=== PATIENT | female | born 1960 | race Caucasian/White ===

== ENCOUNTER → 2021-04-16 10:16 | Outpatient (CLI) | payer OTHER, BC, SELFPAY ==
--- NOTE | ~2021-04-16 | XR_ITS ---
XR lumbar spine 2-3V 04/16/2021 11:29 Indication: Low back pain Procedure: 3 views lumbar spine Comparison: No prior studies for comparison. Findings: There is levoscoliosis centered at L3-4. There is mild disc narrowing at L5-S1. There are f acet degenerative changes at L5-S1. Vertebral body heights are maintained. No fracture, subluxation o r spondylolisthesis. There is atherosclerosis of the aorta. There is calcification in the pelvis, pos sibly calcified uterine fibroid. Impression: 1: Mild lower lumbar spondylosis with levoscoliosis. Reviewed, dictated and finalized at location A. FILLER Impression: 1: Mild lower lumbar spondylosis with levoscoliosis.
--- NOTE | ~2021-04-16 | DEXA_ITS ---
Bone Density Report Name: SARINA PITTMAN Age: 61 Sex: Female Ethnicity: White Date of : 1960 Indication: osteopenia; height loss; postmenopausal Referring Provider: YAHAIRA RAMIREZ Study: Bone densitometry was performed. Exam Date: April 16, 2021 Accession number: [id number] Bone Density: Region BMD T-score Z-score Classification AP Spine (L1-L4) 0.946 -0.9 0.4 Normal Femoral Neck (Left) 0.563 -2.6 -1.3 Osteoporosis Total Hip (Left) 0.709 -1.9 -1.0 Osteopenia Femoral Neck (Right) 0.524 -2.9 -1.7 Osteoporosis Total Hip (Right) 0.692 -2.0 -1.1 Osteopenia Total Hip Mean 0.701 -2.0 -1.1 Osteopenia World Health Organization criteria for BMD impression classify patients as: Normal (T-score at or above -1.0), Osteopenia (T-score between -1.0 and -2.5), or Osteoporosis (T-score at or below -2.5). 10-year Fracture Risk: FRAX not reported because: Some T-score for Spine Total or Hip Total or Femoral Neck at or below -2.5 Previous Exams: Region Exam Age BMD T-score BMD Change BMD Change Date g/cm2 vs Baseline vs Previous AP Spine(L1-L4) 04/16/2021 61 0.946 -0.9 -0.010 -0.010 07/28/2017 57 0.956 -0.8 Total Hip(Left) 04/16/2021 61 0.709 -1.9 -0.032* -0.032* 07/28/2017 57 0.741 -1.6 Total Hip(Right) 04/16/2021 61 0.692 -2.0 -0.015 -0.015 07/28/2017 57 0.707 -1.9 *Denotes significance at 95% confidence level, LSC for AP Spine = 0.022 g/cm2, LSC for Total Hip = 0.027 g/cm2 Clinical Information Provided by Patient: Smokes Has used the following medications: Vitamin D, Calcium Patient maximum height was 62.5 Menopause Age: 52 No regular weight bearing exercise Drinks caffeinated beverages Onset of menses at age 14 Number of children 0 Impression: The patient has osteoporosis, based on the Right Femoral Neck T-score. The patient has risk factors, including: smoking. The BMD for the Total Hip(Left) decreased, changing by -0.032 since the last DXA exam. Discussion: INCREASED RISK OF FRACTURE. BONE DENSITY IS UNDESIRABLY LOW AT ONE OR MORE SKELETAL SITES, CONSISTENT WITH POSTMENOPAUSAL OSTEOPOROSIS. This patient's lowest T-score meets the World Health Organization's (WHO) criteria for osteoporosis at one or more sites (T-score -2.5 or below). In untreated patients, the risk of osteoporotic fracture increases approximately two-fold for each 1.0 SD decrease in T-score. Low bone d
--- NOTE | ~2021-04-16 | XR_ITS ---
EXAMINATION: XR chest 2V DATE: 04/16/2021 11:29 INDICATION: Chronic cough. TECHNIQUE: Frontal and lateral views of the chest were obtained. COMPARISON: Chest 2 views 07/19/2017 FINDINGS: There is a new 2 cm nodule in right midlung zone. No pleural effusion or pneumothorax. The heart size is normal. IMPRESSION: 1. New 2 cm nodule in right midlung zone suspicious for primary bronchogenic carcinoma. Noncontrast c hest CT is recommended. Reviewed, dictated and finalized at location B. E RACING ANALYST IMPRESSION: 1. New 2 cm nodule in right midlung zone suspicious for primary bronchogenic ca rcinoma. Noncontrast chest CT is recommended.
--- NOTE | ~2021-04-16 | XR_ITS ---
XR thoracic spine 3V 04/16/2021 11:29 Indication: Chronic cough. Mid back pain. Procedure: 3 views thoracic spine Comparison: No prior studies for comparison. Findings: There is mild reverse S-shaped scoliosis of the thoracic spine. No acute fracture, subluxat ion or dislocation. No paraspinal soft tissue abnormality. Visualized lung parenchyma is unremarkable . There are mild degenerative disc changes at a few lower thoracic spine levels. Impression: 1: Mild thoracic spondylosis with scoliosis. Reviewed, dictated and finalized at location A. OW FRAMER Impression: 1: Mild thoracic spondylosis with scoliosis.
== END ==
PROVIDERS: PCP Family Medicine Adolescent Medicine; Visit Provider Family Medicine Adolescent Medicine
DX: Z78.0 Asymptomatic menopausal state (principal); R05.9 Cough, unspecified; M54.50 Low back pain, unspecified; M47.814 Spondylosis without myelopathy or radiculopathy, thoracic region; M47.816 Spondylosis without myelopathy or radiculopathy, lumbar region; R91.8 Other nonspecific abnormal finding of lung field; M81.0 Age-related osteoporosis without current pathological fracture; M85.89 Other specified disorders of bone density and structure, multiple sites; M41.86 Other forms of scoliosis, lumbar region; M41.84 Other forms of scoliosis, thoracic region
CPT/HCPCS: 71046; 72072; 72100; 77080

== ENCOUNTER 2021-04-26 09:18 | Observation (INO) | payer OTHER, BC, SELFPAY ==
[2021-04-26] VITALS (32 sets, daily range): BP systolic 109–178; BP diastolic 60–90; PULSE 70–108; RESP 17–30; TEMP 36.7; O2SAT 88–99
--- NOTE | ~2021-04-26 | XR_ITS ---
EXAMINATION: XR chest 2V DATE: 04/26/2021 09:45 INDICATION: Soreness breath, chest tightness and chronic cough TECHNIQUE: PA and lateral views of the chest were obtained. COMPARISON: Chest radiograph dated 04/12/2021 FINDINGS: Again seen is an approximately 2 cm nodule in the right midlung zone which appears less conspicuous t braxton on the prior study. Likely nipple shadows project over the lateral right lower lung zone. No othe r airspace opacities, pulmonary edema, pleural effusion or pneumothorax. The cardiomediastinal silhou ette is normal. Mild thoracic levocurvature. IMPRESSION: 1. Unchanged 2 cm nodule in the right midlung zone which remains concerning for primary bronchogenic carcinoma. Recommend chest CT for further evaluation which be performed either with or without contra st. 2. No other acute cardiopulmonary disease. Reviewed, dictated and finalized at location A. IL STORE ASSISTANT IMPRESSION: 1. Unchanged 2 cm nodule in the right midlung zone which remains concerning for primary bronchogenic carcinoma. Recommend chest CT for further evaluation whic h be performed either with or without contrast. 2. No other acute cardiopulmonary disease.
--- NOTE | ~2021-04-26 | CT_ITS ---
EXAMINATION: CTA chest PE abdomen pel DATE: 04/26/2021 12:53 INDICATION: Tachycardia TECHNIQUE: Computed tomography (CT) pulmonary angiogram of the chest was performed with 100 mL Omnipa que-350 intravenous contrast. Additional 3D reconstructions utilizing coronal maximum intensity proje ction (MIP) were performed. CT of the abdomen and pelvis was performed with intravenous contrast util izing the same contrast bolus following a short delay. Automated exposure control and iterative recon struction technique were employed. The dose-length product was 336.96 mGy-cm. COMPARISON: 04/26/2021 FINDINGS: Chest: Excellent contrast opacification of the pulmonary arteries. There is mild streak artifact from dense contrast in the superior vena cava and right atrium. Mild scattered respiratory motion artifact which only mildly decreases sensitivity in the smaller subsegmental pulmonary arteries at the lung bases. No pulmonary embolism. Mild emphysema. Mild peripheral predominant smooth septal line thickening at t he lower lung zones, right greater than left consistent with mild pulmonary edema. Tiny right pleural effusion. 2.5 x 1.7 x 1.5 cm spiculated right upper lobe nodule suspicious for malignancy. 7 mm tria ngular intrafissural lymph node along the right minor fissure. Heart size is normal. No pericardial e ffusion. Thoracic aorta is normal in caliber with no dissection. No pathologically enlarged thoracic lymphadenopathy. Mild thoracic spondylosis with chronic mild anterior wedging at T12. Abdomen/pelvis: Liver, gallbladder, spleen, pancreas and bilateral adrenal glands are normal. Subcentimeter low-atten uation lesions at the upper poles of both kidneys most likely renal cysts but too small to definitive ly characterize. Several calcified degenerated uterine fibroids. Bladder is normal. Bowels including the appendix are normal. No free intraperitoneal gas or fluid. No pathologically enlarged lymphadenop athy Mild osteoarthritis at the bilateral hips with subarticular cystic change at the anterosuperior acetabulum. IMPRESSION: 1. No pulmonary embolism. 2. Mild emphysema with 2.5 cm between the right upper lobe nodule concerning for primary bronchogenic carcinoma. Recommend CT-guided percutaneous biopsy for further evaluation. 3. Mild pulmonary edema cannot bases, right greater than left with tiny right pleural effusion. 4. Fibroid uterus. Reviewed, dictated and finalized at location A. OAT PILOT IMPRESSION: 1. No pulmonary embolism. 2. Mild emphysema with 2.5 cm between the right upper lobe nodule concerning fo r primary bronchogenic carcinoma. Recommend CT-guided percutaneous biopsy for f urther evaluation. 3. Mild pulmonary edema cannot bases, right greater than left with tiny right p leural effusion. 4. Fibroid uterus.
--- NOTE | 2021-04-26 09:21 | ECG_ITS ---
Measurements Intervals [place] Rate: 107 P: 66 ND: 145 QRS: 42 QRSD: 88 T: 41 QT: 331 QTc: 442 Interpretive Statements SINUS TACHYCARDIA INCOMPLETE RIGHT BUNDLE BRANCH BLOCK BORDERLINE ST-T WAVE ABNORMALITY- ANTEROLAT/INF LEADS BASELINE ARTIFACT- I, II, III, AVR, AVL, AVF ABNORMAL ECG Electronically Signed On 04-26-2021 12:28:51 TILE GRADER by Zane Alfredo D.O.
--- NOTE | 2021-04-26 10:25 | ED.GENADULT ---
HPI - General Adult General Chief complaint: Shortness of Breath/Dyspnea Stated complaint: Shortness of breath Time Seen by Provider: 04/26/21 10:03 Source: patient Mode of arrival: ambulatory Limitations: no limitations History of Present Illness HPI narrative: Patient presents to the ER with complaints of shortness of breath since yesterday. She states she has had a productive cough of white sputum for the last 2 weeks. She saw her primary care provider about this. She had a chest x-ray performed and some lab work. She states her white blood cell count was elevated at 19,000, but she had evidence of a UTI and elevation was attributed to that. She was given abx which she completed yesterday. She has experienced chills yesterday without fever. She has also experienced chest tightness without chest pain per se. She has chronic back pain which she attributes to DDD, however her pain has been getting worse. She has chronic diarrhea that she attributes to microcytic colitis. No nausea or vomiting. She has received both doses of her Pfizer COVID vaccine and has also received her flu shot this year. No recent sick contacts and no personal hx of COVID infection. She smokes 1 ppd but states she has not been able to smoke yesterday or today due to her respiratory symptoms. She states she recently had a pulmonary nodule identified on CXR. No personal hx of VTE however her mother had a DVT. Not on exogenous estrogen. No recent surgeries. Related Data Allergies Allergy/AdvReac Type Severity Reaction Status Date / Time ibuprofen Allergy Unknown Unknown Verified 04/26/21 11:43 sulfanilamide Allergy Unknown Unknown Verified 04/26/21 11:43 Sulfa (Sulfonamide AdvReac Unknown NAUSEA Verified 04/26/21 11:43 Antibiotics) Review of Systems Review of Systems: CONSTITUTIONAL: Reports chills. Denies fever or sweats. EYES: Denies visual changes, redness, or discharge. ENT: Denies rhinorrhea, congestion, sore throat, or otalgia. CARDIOVASCULAR: Reports chest tightness. Denies chest pain, palpitations, or edema. RESPIRATORY: Reports productive cough of white sputum with associated SOB. GASTROINTESTINAL: Reports chronic diarrhea, unchanged. Denies abdominal pain, nausea, vomiting. GENITOURINARY: Denies dysuria or hematuria. SKIN: Denies rash or itching. MUSCULOSKELETAL: Reports chronic back pain, worsening. Denies joint pain, or myalgia. NEUROLOGIC: Denies headache, numbness, dizziness, or weakness. PSYCHIATRIC: Denies anxiety or depression. [facility] Past Medical History Medical History Degenerative disc disease GERD (gastroesophageal reflux disease) Hypertension Lung nodule Tobacco use Surgical History Surgical History No pertinent past surgical history Family History Family History Mother Hypertension Family history of elevated blood lipids Acute myocardial infarction DVT (deep venous thrombosis) Father Family history of rheumatoid arthritis Family history of malignant melanoma Patient's father is Social History Social History Smoking packs per day: 1 Smoking cigarettes per day: 20.0 Smoking status: Current every day smoker Alcohol intake: current Substance use: never Living arrangements: with family 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 HEAD: Normocephalic, atraumatic. EYES: PERRLA and EOMI. ENT: Nares clear, no rhinorrhea or epistaxis. Mucous membranes moist. Oropharynx without tonsillar hypertrophy exudate or other lesions. Caleb
[2021-04-26 10:31] LABS: Basophils Absolute Auto 0.1 K/mm3 (0.0-0.1); Basophils Percent Auto 0.3 % (0.2-1.2); Eosinophils Absolute Auto 0.4 K/mm3 (0-0.3); Eosinophils Percent Auto 1.8 % (0-4.4); Hemoglobin 13.5 g/dL (12.0-15.0); Immature Granulocyte Absolute 0.22 K/mm3 (0.00-0.031); Lymphocytes Absolute Auto 1.87 K/mm3 (0.9-3.2); Lymphocytes Percent Auto 8.7 % (18.3-44.2); Mean Corpuscular HGB Conc 33.8 g/dl (32-36); Mean Corpuscular Hemoglobin 29.3 pg (26-34); Mean Platelet Volume 9.4 fl (7.4-10.4); Monocytes Absolute Auto 1.6 K/mm3 (0.1-0.6); Monocytes Percent Auto 7.2 % (2.6-8.5); Neutrophils Absolute Auto 17.4 K/mm3 (1.3-6.7); Platelet Count Result 585 k/mm3 (150-375); Red Cell Distribution Width 15.8 % (11.5-14.5); White Blood Count 21.5 K/mm3 (4.5-10.0)
[2021-04-26] MEDS: IPRATROPIUM BR 0.02% INH SOLN 0.5 MG/2.5 ML VIAL INHALATION (10:47)
[2021-04-26] MEDS: ALBUTEROL SULFATE NEB 2.5 MG/3 ML INH INHALATION (10:47)
[2021-04-26 11:03] LABS: Add Urine Microscopic? YES; Appearance Urine Clear (Clear); Bilirubin Urine Negative (Negative); Blood Urine 2+ (Negative); Color Urine Straw (Yellow); Glucose Urine UA Negative (Negative); Ketones Urine Negative (Negative); Leukocyte Esterase Ur Negative LEU/UL (Negative); Mucus Urine Rare /lpf; Nitrate Urine Negative (Negative); Protein Urine 1+ mg/dL (Negative); RBC Urine 0-2 /hpf (0-2); Specific Grav Ur 1.006 (1.001-1.035); Urobilinogen Urine Negative mg/dL (<2.0); WBC Urine 0-3 /hpf
[2021-04-26 11:12] LABS: Lactic Acid Reflex 1.3 mmol/L (0.7-2.1)
--- NOTE | 2021-04-26 11:14 | PC.NURSE ---
SPoke with Cherelle in the lab, she is unreceiving labs , both times labs sent they were hemolyzed. Documentation Supervisor called, she will come draw the patient.
[2021-04-26 11:21] LABS: NT Pro B Type Natriuretic Pept 1090 pg/mL (5-100)
[2021-04-26] MEDS: SODIUM CHLORIDE 0.9% IV 1,000 ML 999 ML IV CONT (11:43)
[2021-04-26] MEDS: methylPREDNISolone SOD SUCC 125 MG VIAL IV PUSH (11:43)
[2021-04-26 11:51] LABS: INR 0.9; Prothrombin Time 11.9 Seconds (11.1-14.7)
[2021-04-26 11:52] LABS: Partial Thromboplastin Time 35.3 SECONDS (22.3-36.8)
[2021-04-26 12:04] LABS: Alanine Aminotransferase 16 U/L (4-35); Albumin Level 4.7 g/dL (3.5-5.1); Alkaline Phosphatase 124 U/L (38-126); Anion Gap 11 mmol/L (8-16); Aspartate Amino Transferase 29 U/L (14-36); Bilirubin,Total 0.5 mg/dL (0.2-1.3); Blood Urea Nitrogen 16 mg/dL (7-17); Carbon Dioxide 26 mmol/L (22-30); Chloride 90 mmol/L (98-107); Estimated Glomerular Filt Rate 51; Glucose 105 mg/dL (65-110); Lipase 77 U/L (23-300); Potassium 3.4 mmol/L (3.4-5.0); Sodium 127 mmol/L (137-145)
[2021-04-26 12:17] LABS: Troponin I 0.209 ng/mL (0.000-0.034)
--- NOTE | 2021-04-26 12:17 | ECG_ITS ---
Measurements Intervals [place] Rate: 86 P: 7 DC: 111 QRS: 43 QRSD: 85 T: 26 QT: 376 QTc: 451 Interpretive Statements SINUS RHYTHM WITH SHORT DC INTERVAL INCOMPLETE RIGHT BUNDLE BRANCH BLOCK BORDERLINE T WAVE ABNORMALITY- ANT/INF LEADS BASELINE ARTIFACT- I, II, AVR BORDERLINE ECG Electronically Signed On 04-26-2021 20:16:08 FRENCH POLISHER by Zane Alfredo D.O.
[2021-04-26 12:18] LABS: CRP 7.8 mg/dL (<1.0); Creatine Kinase 248 U/L (30-135); Lactate Dehydrogenase 472 U/L (313-618)
--- NOTE | 2021-04-26 12:34 | PC.NURSE ---
CALLED GENARO SPOUSE OF PT AT [phone] TO GIVE UPDATE ON PT CONDITION. HE WILL BRING IN HER PHONE SO SHE CAN GIVE FURTHER UPDATES TO HIM.
[2021-04-26 14:57] LABS: Troponin I 0.173 ng/mL (0.000-0.034)
[2021-04-26 18:29] LABS: Troponin I 0.169 ng/mL (0.000-0.034)
--- NOTE | 2021-04-26 19:48 | PM.IMHP ---
H&P: HPI History of Present Illness Date/Time: 04/26/21 19:48 this is a 61-year-old female patient continues to smoke daily. The patient came to the emergency room for shortness of breast since yesterday. The patient recently had a chest x-ray on 04/16/2020 that was read as due to severe nitro and right midlung zone suspicious for primary bronchogenic carcinoma. Noncontrast chest CT is recommended. The patient stated that she was waiting for her insurance to approve her CT scan. However the patient came to the emergency room today because she is more short of breath than normal. Patient is currently on room air. The patient appears to be very anxious chest x-ray today was read as the following.1. Unchanged 2 cm nodule in the right midlung zone which remains concerning for primary bronchogenic carcinoma. Recommend chest CT for further evaluation which be performed either with or without contrast. 2. No other acute cardiopulmonary disease. Chest abdomen pelvis CT read as 1. No pulmonary embolism. 2. Mild emphysema with 2.5 cm between the right upper lobe nodule concerning for primary bronchogenic carcinoma. Recommend CT-guided percutaneous biopsy for further evaluation. 3. Mild pulmonary edema cannot bases, right greater than left with tiny right pleural effusion. 4. Fibroid uterus. Her white count is 21.5. However the patient has chronic leukocytosis. The patient was seen by oncologist and had a workup for this already and a source was not found. Troponin 0.209, 0.173, and 0.169 respectively. The patient was requesting to go home. However reviewed all of her information with her and she decided that she would stay in the hospital overnight. Total creatinine kinase 248. BNP 1090. COVID pending. The patient was admitted to observation status on the date of service of 04/26/2021 Chief Complaint: Shortness of breath Review of Systems Review of Systems: All systems reviewed & are unremarkable except as noted in HPI and below Constitutional: Constitutional: Reports as per HPI and Reports no additional constitutional complaints Eyes: Eyes: Reports as per HPI and Reports no additional eye complaints ENT: Reports system reviewed and no additional complaints, except as documented and Reports Normal hearing present Cardiovascular: Cardiovascular: Reports no additional cardiovascular complaints Respiratory: Respiratory: Reports no additional respiratory complaints and Reports no additional respiratory complaints Gastrointestinal: Gastrointestinal: Reports as per HPI and Reports no additional gastrointestinal complaints Musculoskeletal: Musculoskeletal: Reports no additional musculoskeletal complaints Integumentary/Breasts: Skin/Breast: Reports system reviewed and no additional complaints, except as docu and Reports as per HPI Neurologic: Reports system reviewed and no additional complaints, except as documented, Reports as per HPI and Reports Normal hearing present Psychiatric: Psychiatric: Reports no additional psychiatric complaints and Reports as per HPI Endocrine: Endocrine: Reports no additional endocrine complaints Hematologic/Lymphatic: Hematologic/Lymphatic: Reports no additional hematologic/lymphatic complaints Allergic/Immunologic: Allergic/Immunologic: Reports no additional allergic/immunologic complaints [facility] Past Medical History Medical History Degenerative disc disease GERD (gastroesophageal reflux disease) Hypertension Leukocytosis Lung nodule Osteoarthritis Osteoporosis Tobacco use Surgical History Surgical History No pertinent past surgical history Family History Family History Mother Hypertension Family history of elevated blood lipids Acute myocardial infarction DVT (deep venous thrombosis) Father Family history of rheumatoid arthritis Family history of malignant melanoma Nery
[2021-04-26] MEDS: NICOTINE (*PBKC) 14 MG PATCH 1 PATCH TRANSDERM (23:05)
[2021-04-26] MEDS: PANTOPRAZOLE SODIUM IV 40 MG VIAL IV PUSH (23:11)
[2021-04-26] MEDS: ACETAMINOPHEN 325 MG TABLET 650 MG PO (23:17)
[2021-04-26] MEDS: ALPRAZolam (*CRX) 0.5 MG TABLET PO (23:18)
[2021-04-27] VITALS (43 sets, daily range): BP systolic 104–121; BP diastolic 67–80; PULSE 69–100; RESP 11–29; O2SAT 94–98
[2021-04-27 05:15] LABS: Basophils Absolute Auto 0.1 K/mm3 (0.0-0.1); Basophils Percent Auto 0.3 % (0.2-1.2); Eosinophils Absolute Auto 0.2 K/mm3 (0-0.3); Eosinophils Percent Auto 0.9 % (0-4.4); Hematocrit 33.9 % (37.0-47.0); Hemoglobin 11.3 g/dL (12.0-15.0); Immature Granulocyte Absolute 0.19 K/mm3 (0.00-0.031); Immature Granulocyte Percent A 0.8 % (0-0.5); Lymphocytes Absolute Auto 1.67 K/mm3 (0.9-3.2); Lymphocytes Percent Auto 7.4 % (18.3-44.2); Mean Corpuscular HGB Conc 33.3 g/dl (32-36); Mean Corpuscular Hemoglobin 29.4 pg (26-34); Mean Corpuscular Volume 88.1 fl (80-100); Monocytes Absolute Auto 1.7 K/mm3 (0.1-0.6); Monocytes Percent Auto 7.6 % (2.6-8.5); Neutrophils Absolute Auto 18.8 K/mm3 (1.3-6.7); Platelet Count Result 454 k/mm3 (150-375); Red Blood Count 3.85 M/mm3 (4.2-5.4); Red Cell Distribution Width 15.8 % (11.5-14.5); White Blood Count 22.6 K/mm3 (4.5-10.0)
[2021-04-27 05:18] LABS: Anion Gap 8 mmol/L (8-16); Blood Urea Nitrogen 23 mg/dL (7-17); Calcium 9.1 mg/dL (8.4-10.2); Carbon Dioxide 27 mmol/L (22-30); Chloride 95 mmol/L (98-107); Estimated Glomerular Filt Rate 46; Glucose 108 mg/dL (65-110); Lactate Dehydrogenase 408 U/L (313-618); Magnesium 1.5 mg/dL (1.6-2.3); Potassium 3.3 mmol/L (3.4-5.0); Sodium 130 mmol/L (137-145)
[2021-04-27] MEDS: CANDESARTAN CILEXETIL 16 MG TABLET 32 MG PO (08:52)
[2021-04-27] MEDS: hydroCHLOROthiazide 25 MG TABLET PO (08:53)
[2021-04-27] MEDS: PANTOPRAZOLE SODIUM IV 40 MG VIAL IV PUSH (08:53)
--- NOTE | 2021-04-27 08:59 | PC.NURSE ---
pt took home sulindac 200 mg po
--- NOTE | 2021-04-27 09:42 | PM.DS ---
DS: Admitting Diagnosis Discharge Date 04/27/2021 Admitting Diagnosis (1) Elevated troponin: (2) Lung nodule: (3) Hypertension: (4) GERD (gastroesophageal reflux disease): (5) Degenerative disc disease: (6) Leukocytosis: (7) Osteoarthritis: (8) Tobacco use: DS: Discharge Diagnosis Discharge Diagnosis (1) Elevated troponin: Code(s): R77.8 - Other specified abnormalities of plasma proteins Status: Acute Assessment and Plan: Troponins level. Cardiology has been consulted. (2) Lung nodule: Code(s): R91.1 - Solitary pulmonary nodule Status: Chronic Assessment and Plan: The patient had a chest x-ray several days ago and found out that she has a lung nodule. The patient was unable to get approval from the insurance company to have a CT scan the patient had a CT scan today. I did order a biopsy of the lung mass per Interventional Radiology. (3) Hypertension: Code(s): I10 - Essential (primary) hypertension Status: Chronic Assessment and Plan: Continue with her candesartan and hydrochlorothiazide (4) GERD (gastroesophageal reflux disease): Code(s): K21.9 - Gastro-esophageal reflux disease without esophagitis Status: Acute Assessment and Plan: iv protonix (5) Degenerative disc disease: Status: Chronic Assessment and Plan: home medications (6) Leukocytosis: Qualifiers: Leukocytosis type: other Qualified Code(s): D72.828 - Other elevated white blood cell count Code(s): D72.829 - Elevated white blood cell count, unspecified Status: Chronic Assessment and Plan: This is chronic. The patient stated that she has been seen by an oncologist in the past and could not find the source. (7) Osteoarthritis: Code(s): M19.90 - Unspecified osteoarthritis, unspecified site Status: Chronic Assessment and Plan: Continue with home medications. (8) Osteoporosis: Code(s): M81.0 - Age-related osteoporosis without current pathological fracture Status: Chronic Assessment and Plan: Continue with home medication (9) Tobacco use: Code(s): Z72.0 - Tobacco use Status: Chronic Assessment and Plan: Nicotine patch. We discussed smoking cessation for approximately 5 minute (10) Lung nodule < 6cm on CT: Code(s): R91.1 - Solitary pulmonary nodule Status: Acute DS: Summary Hospital Course Reason for hospitalization: Shortness of breath Hospital Course: Please refer to admission H& P. Briefly, this is a 61-year-old female patient continues to smoke daily. The patient came to the emergency room for shortness of breast since yesterday. The patient recently had a chest x-ray on 04/16/2020 that was read as due to severe 2 cm nodule in the right midlung zone which remains concerning for primary bronchogenic carcinoma . Noncontrast chest CT is recommended. Chest CT read as mild emphysema with 2.5 cm between the right upper lobe nodule concerning for primary bronchogenic carcinoma. Recommend CT-guided percutaneous biopsy for further evaluation. 3. Mild pulmonary edema cannot bases, right greater than left with tiny right pleural effusion. Her white count is 21.5. However the patient has chronic leukocytosis. The patient was seen by oncologist and had a workup for this already and a source was not found. Troponin 0.209, 0.173, and 0.169 respectively. No significant uptrend of the troponin. The patient was requesting to go home. Total creatinine kinase 248. BNP 1090. COVID pending. At the time of my evaluation patient is stable afebrile saturating well on room air. A COVID test remains pending. Patient decides she wants to leave to go home. Patient refuses to stay in the hospital. She will follow up with her regular PCP for the nodule biopsy. Time spent discussing smoking cessation with patient: more than 10 minutes Status at Discharge Functional status at discharge:
--- NOTE | 2021-04-27 10:35 | PC.NURSE ---
pt to have home o2 evaluation. pending possible discharge from ed.
[2021-04-28 19:11] LABS: SARS-CoV-2 RNA PCR Negative
== END 2021-04-27 12:30 | disposition home or self-care (01) ==
LOC: ANHED 14:25 → ANH3MEDSUR 04-27 09:40
PROVIDERS: Emergency Medicine; Nurse Practitioner; Admitting Provider Internal Medicine; Emergency Provider Nurse Practitioner; PCP Family Medicine Adolescent Medicine; Visit Provider Internal Medicine
DX: R06.02 Shortness of breath (principal); R77.8 Other specified abnormalities of plasma proteins; R91.1 Solitary pulmonary nodule; D72.828 Other elevated white blood cell count; D25.9 Leiomyoma of uterus, unspecified; F17.210 Nicotine dependence, cigarettes, uncomplicated; I10 Essential (primary) hypertension; J43.9 Emphysema, unspecified; J81.1 Chronic pulmonary edema; K21.9 Gastro-esophageal reflux disease without esophagitis; M81.0 Age-related osteoporosis without current pathological fracture; Z20.822 Contact with and (suspected) exposure to COVID-19
CPT/HCPCS: 36415; 71046; 71275; 74177; 80048; 80053; 81001; 82550; 82728; 83605; 83615; 83690; 83735; 83880; 84443; 84484; 85025; 85610; 85730; 86140; 87040; 87804; 93005; 94618; 94640; 96361; 96374; 96375; 99285; A9270; C9113; C9803; G0378; J2930; J7030; Q9967; U0003; U0005

== ENCOUNTER → 2021-05-07 15:39 | Outpatient (CLI) | payer OTHER, BC, SELFPAY ==
--- NOTE | ~2021-05-07 | MM_ITS ---
EXAMINATION: MM screening [facility] BI w wang HISTORY: Screening mammogram TECHNIQUE: Craniocaudal and mediolateral oblique 3-D tomosynthesis images were obtained and synthetic 2-D images were generated. CAD analysis was submitted and interpreted. COMPARISON: Serial mammogram and ultrasound examinations dating back to July 16, 2016 BREAST PARENCHYMAL COMPOSITION: The breasts are heterogeneously dense, which may obscure small masses . FINDINGS: There is a biopsy marker on the left; history of prior benign left breast biopsy. Stable mild fibroglandular asymmetry. Otherwise there is no evidence of suspicious mass, calcification, or architectural distortion to sugg est malignancy in either breast. Scattered bilateral benign calcifications are again noted. There has been no other suspicious interval change. IMPRESSION: 1. No mammographic evidence of malignancy. 2. Recommend routine screening mammography in one year. BI-RADS Category 2: Benign finding(s). Reviewed, dictated and finalized at location A. RMATICS COORDINATOR
== END ==
PROVIDERS: PCP Family Medicine Adolescent Medicine; Visit Provider Family Medicine Adolescent Medicine
DX: Z12.31 Encounter for screening mammogram for malignant neoplasm of breast (principal)
CPT/HCPCS: 77063; 77067

== ENCOUNTER 2021-05-22 01:17 | Outpatient (CLI) | payer OTHER, BC, SELFPAY ==
[2021-05-22] VITALS (8 sets, daily range): BP systolic 95–117; BP diastolic 51–64; PULSE 69–78; RESP 16; O2SAT 97–100
--- NOTE | ~2021-05-22 | XR_ITS ---
EXAMINATION: XR chest 1V portable DATE: 05/22/2021 13:46 INDICATION: Status post percutaneous right lung biopsy TECHNIQUE: frontal view of the chest was obtained. COMPARISON: Chest radiograph dated 05/22/2021 at 12:17 PM FINDINGS: Decrease opacities surrounding the right upper lobe nodule in the mid lung zone consistent with resol ution of prior pulmonary hemorrhage. Lungs otherwise clear. No pleural effusion or pneumothorax. The cardiomediastinal silhouette is normal. Mild thoracic levocurvature. IMPRESSION: 1. Resolution of prior small amount of pulmonary hemorrhage surrounding the biopsied right upper lobe nodule. 2. No pneumothorax or pleural effusion. Reviewed, dictated and finalized at location A. N TUNER IMPRESSION: 1. Resolution of prior small amount of pulmonary hemorrhage surrounding the bio psied right upper lobe nodule. 2. No pneumothorax or pleural effusion.
--- NOTE | ~2021-05-22 | XR_ITS ---
EXAMINATION: XR chest 1V portable DATE: 05/22/2021 15:29 INDICATION: Status post percutaneous right lung biopsy TECHNIQUE: frontal view of the chest was obtained. COMPARISON: Chest radiograph dated 05/22/2021 at 1:39 PM FINDINGS: Right upper lobe nodule projecting over the mid lung zone suspicious for primary bronchogenic carcino ma. No other airspace opacities, pulmonary edema, pleural effusion or pneumothorax. The cardiomediast inal silhouette is normal. Mild upper thoracic levocurvature. IMPRESSION: 1. No pleural effusion or pneumothorax post exchange biopsy of a right upper lobe nodule concerning f or primary bronchogenic carcinoma. Reviewed, dictated and finalized at location A. [employer] IMPRESSION: 1. No pleural effusion or pneumothorax post exchange biopsy of a right upper lo be nodule concerning for primary bronchogenic carcinoma.
--- NOTE | 2021-05-22 15:32 | SUR.PHASEII ---
1330 PORTABLE CXR DONE AT BEDSIDE. 1530 PORTABLE CXR DONE AT BEDSIDE.
--- NOTE | 2021-05-22 15:44 | SUR.PHASEII ---
DR. BRAY CALLED. HE WILL COME SEE PATIENT BEFORE DISCHARGE.
--- NOTE | 2021-05-22 16:26 | SUR.PHASEII ---
1610 DR. BRAY HERE TO SEE PT.
== END 2021-05-22 16:15 | disposition home or self-care (01) ==
PROVIDERS: PCP Family Medicine Adolescent Medicine; Visit Provider Radiology Diagnostic Radiology
PROC: BB24ZZZ Computerized Tomography (CT Scan) of Bilateral Lungs (ICD-10-PCS; CPT 32408; principal; 2021-05-22 11:00)
DX: R91.8 Other nonspecific abnormal finding of lung field (principal)
CPT/HCPCS: 71045

== ENCOUNTER 2021-05-22 10:31 | Outpatient (CLI) | payer OTHER, BC, SELFPAY ==
--- NOTE | ~2021-05-22 | CT_ITS ---
EXAMINATION: CT biopsy lung w/imaging DATE: 05/22/2021 12:32 INDICATION: Right lung mass TECHNIQUE: The procedure including the risks and benefits was discussed with the patient. Risks discu ssed included infection, approximately 1/20 risk of symptomatic hemorrhage beyond mild hemoptysis, ap proximately 1/3 risk of pneumothorax, and approximately 1/10 risk of pneumothorax severe enough to wa rrant chest tube placement. The patient understood the risks and agreed to proceed. The patient was p laced supine. The skin overlying the anterior right upper chest was prepped and draped in sterile fa shion. Anesthetic was administered with 1% lidocaine subcutaneously. A 19 gauge outer needle was ad vanced under CT guidance to the lesion of interest. A 20 gauge core biopsy needle was then used to ob tain 4 core biopsy specimens. The needle was removed and the entry site was cleaned and dressed. The re were no immediate complications. The dose-length product was 156.43 mGy-cm. FINDINGS: CT images demonstrate the outer needle tip adjacent to a 2.3 x 1.3 cm right upper lobe mass . IMPRESSION: 1. Successful CT-guided biopsy of a 2.3 cm right upper lobe mass which is concerning for malignancy. Reviewed, dictated and finalized at location A. ER [employer]ER IMPRESSION: 1. Successful CT-guided biopsy of a 2.3 cm right upper lobe mass which is trina rning for malignancy.
--- NOTE | ~2021-05-22 | XR_ITS ---
EXAMINATION: XR chest 1V DATE: 05/22/2021 12:20 INDICATION: Status post right lung biopsy TECHNIQUE: frontal view of the chest was obtained. COMPARISON: Chest radiograph dated 04/26/2021 FINDINGS: No pneumothorax or pleural effusion. Nodular opacity in the lateral right mid to upper lung zone cons istent with the biopsied nodule and likely small amount of surrounding pulmonary hemorrhage. The card iomediastinal silhouette is normal. Mild upper thoracic levocurvature. IMPRESSION: 1. Small amount of pulmonary hemorrhage surrounding the biopsied right upper lobe nodule with no pleu ral effusion or pneumothorax. Reviewed, dictated and finalized at location A. S [employer] IMPRESSION: 1. Small amount of pulmonary hemorrhage surrounding the biopsied right upper lo be nodule with no pleural effusion or pneumothorax.
[2021-05-22 12:34] VITALS: BP 126/70; PULSE 78; RESP 18; O2SAT 100
[2021-05-22 12:36] VITALS: BP 122/68; PULSE 71; RESP 18; O2SAT 97
== END 2021-05-22 10:32 | disposition home or self-care (01) ==
LOC: ANHIMG 10:33
PROVIDERS: PCP Family Medicine Adolescent Medicine; Visit Provider Family Medicine Adolescent Medicine
DX: R91.8 Other nonspecific abnormal finding of lung field (principal)
CPT/HCPCS: 32408; 71045; 88305; 88342

== ENCOUNTER → 2021-11-01 07:28 | Outpatient (CLI) | payer OTHER, BC, SELFPAY ==
--- NOTE | ~2021-11-01 | XR_ITS ---
XR chest 2V 11/01/2021 08:15 Indication: Emphysema. Dyspnea. Procedure: 2 view chest Comparison: Comparison to multiple prior studies sequentially, with oldest reviewed study dated 08/2020. Findings: Heart size normal. There are surgical changes consistent with partial right lung resection with volume loss. There is a developing extrapleural mass of the left upper thorax with ill definitio n of the overlying ribs which may represent fracture or lytic destruction. Impression: 1: Developing extrapleural mass left upper thorax. Cannot exclude malignancy. Correlation with CT [facility] recommended. Reviewed, dictated and finalized at location A. Impression: 1: Developing extrapleural mass left upper thorax. Cannot exclude malignancy. C orrelation with CT chest recommended.
== END ==
PROVIDERS: PCP Family Medicine Adolescent Medicine; Visit Provider Family Medicine Adolescent Medicine
DX: J43.9 Emphysema, unspecified (principal); R06.00 Dyspnea, unspecified; R91.8 Other nonspecific abnormal finding of lung field
CPT/HCPCS: 71046